=== PATIENT | male | born 1990 | race Caucasian/White ===

== ENCOUNTER 2018-10-26 20:37 | Emergency (ER) | payer BC ==
--- NOTE | 2018-10-26 21:00 | ED.PDOC ---
History of Present Illness - General Chief Complaint: Blood Pressure Problem Stated Complaint: felt dizzy, BP elevated Time Seen by Provider: 10/26/18 20:58 Source: patient, RN notes reviewed, Vital Signs reviewed Additional Information: 28 YEAR OLD [employer] PRESENTS WITH FEELING DIZZY AND LIGHTHEADED TODAY NO ASSOCIATED CHEST PAIN NO SHORTNESS OF BREATH NO VOMITING OR DIARRHEA HE HAS FAMILY HISTORY OF DIABETES HE IS NOT ON ANY MEDICATIONS - History of Present Illness Timing/Duration: unsure Severity: mild, moderate Improving Factors: nothing Worsening Factors: movement Associated Symptoms: denies symptoms Allergies/Adverse Reactions: Allergies NO KNOWN ALLERGY Allergy (Verified 10/26/18 21:15) Home Medications: Ambulatory Orders Metoprolol Tartrate 50 mg PO Q24HR #30 tab 10/26/18 Review of Systems - Review of Systems Constitutional: States: no symptoms reported EENTM: States: no symptoms reported Respiratory: States: no symptoms reported Cardiology: States: no symptoms reported Gastrointestinal/Abdominal: States: no symptoms reported Genitourinary: States: no symptoms reported Musculoskeletal: States: no symptoms reported Skin: States: no symptoms reported Neurological: States: no symptoms reported Endocrine: States: no symptoms reported Hematologic/Lymphatic: States: no symptoms reported Past Medical History (General) - Patient Medical History Hx Seizures: No Hx Stroke: No Hx Dementia: No Hx Asthma: No Hx of COPD: No Hx Cardiac Disorders: No Hx Congestive Heart Failure: No Hx Pacemaker: No Hx Hypertension: No Hx Thyroid Disease: No Hx Diabetes: No Hx Gastroesophageal Reflux: No Hx Renal Disease: No Hx of HIV: No Hx MRSA: No Surgical History: other - Vaccination History Hx Tetanus, Diphtheria Vaccination: No Hx Influenza Vaccination: No Hx Pneumococcal Vaccination: No - Social History Hx Tobacco Use: Yes Hx Alcohol Use: Yes Family Medical History - Family History Mother Hx Family Diabetes: Yes Physical Exam - Physical Exam General Appearance: Agitated, Alert, Anxious Eye Exam: bilateral normal Ears, Nose, Throat: hearing grossly normal, normal ENT inspection, normal pharynx, abnormal TM (R) Neck: non-tender, full range of motion, supple Respiratory: chest non-tender, lungs clear, normal breath sounds, no respiratory distress, no accessory muscle use Cardiovascular/Chest: normal peripheral pulses, regular rate, rhythm, no edema, no gallop, no JVD Peripheral Pulses: radial,right: 2+ Gastrointestinal/Abdominal: normal bowel sounds, non tender, soft, no organomegaly, no pulsatile mass Back Exam: normal inspection, no CVA tenderness Extremity: normal range of motion, non-tender, normal inspection, no pedal edema 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 Copy, Patient Portal Self Enrollment Instructions: DI for High Blood Pressure Prescriptions: Metoprolol Tartrate 50 mg PO Q24HR #30 tab Home Medications: Ambulatory Orders Metoprolol Tartrate 50 mg PO Q24HR #30 tab 10/26/18 Comments: RECOMMEND DAY JOB MONITOR YOUR BLOOD GLUCOSE IF FASTING BLOOD GLUCOSE IS ABOVE 120 SEEK YOUR PHYSICIAN FOR MANAGEMENT
[2018-10-26] MEDS: METOPROLOL TARTRATE INJ 5 MG/5 ML VIAL IV ONE (21:17)
--- NOTE | 2018-10-26 21:35 | RAD ---
EXAM DESCRIPTION: AP view of the chest CLINICAL HISTORY:28 years Male, HTN NEAR SYNCOPE Comparison: None FINDINGS: No focal lung consolidation. No pleural effusion. No pneumothorax. Cardiac and mediastinal silhouette is unremarkable. No acute osseous abnormality. Soft tissues are unremarkable. IMPRESSION: No acute findings. No focal lung consolidation. Electronically signed by: Jet Saavedra DO 10/26/2018 9:33 PM CDT
[2018-10-26 21:47] VITALS: O2SAT 96
[2018-10-26 22:05] VITALS: BP 132/87; TEMP 98.2
== END 2018-10-26 22:02 | disposition home or self-care (01) ==
LOC: ER 20:37
DX: I10 Essential (primary) hypertension (principal); R42 Dizziness and giddiness; Z83.3 Family history of diabetes mellitus; Z87.891 Personal history of nicotine dependence